=== PATIENT | male | born 1960 | race Caucasian/White ===

== ENCOUNTER 2017-11-12 13:59 | Inpatient (IN) | payer BC ==
[~2017-11-12] VITALS: Ht 190.5 cm; Wt 98.0 kg
[2017-11-12 14:39] LABS: BASOPHILS % (AUTO) 0.3 % (0-1); EOSINOPHILS # (AUTO) 0.2 X10'3 (0-0.9); EOSINOPHILS % (AUTO) 1.7 % (0-6); HEMATOCRIT 39.7 % (42.0-52.0); HEMOGLOBIN 13.8 g/dl (14.0-17.9); LYMPHOCYTES # (AUTO) 1.5 X10'3 (1.1-4.8); LYMPHOCYTES % (AUTO) 16.7 % (21-51); MEAN CORPUSCULAR HEMOGLOBIN 32.1 PG (27.0-31.0); MEAN CORPUSCULAR HGB CONC 34.8 % (33.0-36.5); MEAN CORPUSCULAR VOLUME 92.3 FL (78-98); MONOCYTES # (AUTO) 0.7 X10'3 (0-0.9); MONOCYTES % (AUTO) 8.1 % (2-12); NEUTROPHILS # (AUTO) 6.5 X10'3 (1.8-7.7); NEUTROPHILS % (AUTO) 73.2 % (42-75); PLATELET COUNT 287 X10'3 (140-440); WHITE BLOOD COUNT 8.9 X10'3 (4.5-11.0)
[2017-11-12 14:48] LABS: PARTIAL THROMBOPLASTIN TIME 25 SECONDS (22-32); PROTHROMBIN TIME 10.5 SECONDS (9.0-12.0)
[2017-11-12 14:52] LABS: ALANINE AMINOTRANSFERASE 32 U/L (12-78); ALBUMIN 3.7 G/DL (3.4-5.0); ALBUMIN/GLOBULIN RATIO 1.1 (1.1-1.5); ALKALINE PHOSPHATASE 72 IU/L (46-116); ANION GAP 11 (8-16); ASPARTATE AMINO TRANSFERASE 15 U/L (10-37); BLOOD UREA NITROGEN 19 MG/DL (7-18); BUN/CREATININE RATIO 17.6 (5.4-32.0); CALCIUM 8.6 MG/DL (8.5-10.1); CHLORIDE 103 MMOL/L (99-107); CREATININE 1.08 MG/DL (0.60-1.10); GLUCOSE 129 MG/DL (70-104); POTASSIUM 3.7 MMOL/L (3.5-5.1); SODIUM 138 MMOL/L (135-145); TOTAL CARBON DIOXIDE 24.1 MMOL/L (24-32); eGFR 71 ML/MIN
[2017-11-12] MEDS ORDERED: HYDROmorphone 1 mg/ml syringe IM ONE (15:00)
[2017-11-12 15:13] LABS: LIPASE 100 U/L (73-393)
[2017-11-12] MEDS ORDERED: magnesium 1gm/100ml D5W IVPB 50 ML IV PRN (15:55)
[2017-11-12] MEDS ORDERED: ondansetron/PF 4mg/2ml inj IV PRN (15:55)
[2017-11-12] MEDS ORDERED: magnesium hydroxide 30ml (MOM) UD suspension PO PRN (15:55)
[2017-11-12] MEDS ORDERED: potassium Cl 40MEQ/NS 500ml 500 ML IV PRN ×2 (15:55)
[2017-11-12] MEDS ORDERED: mag hydrox/Alum hydrox/simeth 30ml oral suspension PO PRN (15:55)
[2017-11-12] MEDS ORDERED: acetaminophen 325mg tablet PO PRN ×2 (15:55→19:15)
[2017-11-12] MEDS ORDERED: magnesium Cl slow-release 64mg tablet PO PRN (15:55)
[2017-11-12] MEDS ORDERED: magnesium 4gm in 100ml NS 100 ML IV PRN (15:55)
[2017-11-12] MEDS ORDERED: potassium Cl 20 mEq SR tablet PO PRN ×2 (15:55)
[2017-11-12] MEDS ORDERED: LOSA1TAB41 PO (17:13)
[2017-11-12] MEDS ORDERED: ATOR20TA PO (17:13)
[2017-11-12] MEDS ORDERED: AMLO2.5T2 PO (17:13)
[2017-11-12] MEDS ORDERED: HYDROmorphone 1 mg/ml syringe IV ONE (19:15)
[2017-11-12 20:00] VITALS: BP 140/80
[2017-11-12] MEDS ORDERED: nitroGLYCERIN 0.4mg SUBLingual tab SL PRN (20:00)
[2017-11-12] MEDS ORDERED: regadenoson 0.4mg/5ml syringe IV PRN (20:00)
[2017-11-12] MEDS ORDERED: metoprolol tartrate 1mg/ml inj IV PRN (20:00)
[2017-11-12] MEDS ORDERED: CAFFEINE CITRATE 60 MG/3 ML injection vial IV PRN (20:00)
[2017-11-12] MEDS ORDERED: Melatonin 3mg tablet PO SCH (21:00)
[2017-11-12] MEDS ORDERED: atorvastatin 10mg tablet PO SCH (21:00)
[2017-11-13] VITALS (10 sets, daily range): BP systolic 127–153; BP diastolic 78–88
[2017-11-13 04:40] LABS: BASOPHILS % (AUTO) 0.5 % (0-1); EOSINOPHILS # (AUTO) 0.3 X10'3 (0-0.9); EOSINOPHILS % (AUTO) 3.7 % (0-6); HEMATOCRIT 42.4 % (42.0-52.0); HEMOGLOBIN 14.6 g/dl (14.0-17.9); LYMPHOCYTES % (AUTO) 24.8 % (21-51); MEAN CORPUSCULAR HEMOGLOBIN 31.7 PG (27.0-31.0); MEAN CORPUSCULAR HGB CONC 34.4 % (33.0-36.5); MEAN CORPUSCULAR VOLUME 92.3 FL (78-98); MEAN PLATELET VOLUME 7.3 FL (7.4-10.4); MONOCYTES # (AUTO) 0.8 X10'3 (0-0.9); MONOCYTES % (AUTO) 10.7 % (2-12); NEUTROPHILS # (AUTO) 4.8 X10'3 (1.8-7.7); NEUTROPHILS % (AUTO) 60.3 % (42-75); PLATELET COUNT 292 X10'3 (140-440); RED BLOOD COUNT 4.59 X10'6 (4.70-6.10); RED CELL DISTRIBUTION WIDTH 13.2 % (11.5-14.5); WHITE BLOOD COUNT 7.9 X10'3 (4.5-11.0)
[2017-11-13 04:59] LABS: ALBUMIN 3.7 G/DL (3.4-5.0); ANION GAP 9 (8-16); BLOOD UREA NITROGEN 16 MG/DL (7-18); CALCIUM 8.6 MG/DL (8.5-10.1); CHLORIDE 102 MMOL/L (99-107); CREATININE 0.84 MG/DL (0.60-1.10); GLUCOSE 108 MG/DL (70-104); MAGNESIUM 2.1 MG/DL (1.5-2.4); POTASSIUM 3.7 MMOL/L (3.5-5.1); SODIUM 137 MMOL/L (135-145); TOTAL CARBON DIOXIDE 25.6 MMOL/L (24-32); eGFR > 90 ML/MIN
[2017-11-13] MEDS ORDERED: pantoprazole 40mg Tablet.DR PO SCH (07:30)
[2017-11-13] MEDS ORDERED: K and/or MAG REPLACEMENT MC SCH (08:00)
[2017-11-13] MEDS ORDERED: CAFFEINE CITRATE 60 MG/3 ML injection vial IV ONE (08:28)
[2017-11-13] MEDS ORDERED: regadenoson 0.4mg/5ml syringe IV ONE (08:28)
[2017-11-13] MEDS ORDERED: PANT40TA4 PO (09:06)
== END 2017-11-13 13:44 | disposition home or self-care (01) | DRG 392 ==
LOC: ER 13:59 → ED HOLD 15:52 → SUR 3N 19:02
PROVIDERS: ADMIT Internal Medicine; ATTEND Internal Medicine
PROC: 4A02XM4 Measurement of Cardiac Total Activity, External Approach (ICD-10-PCS; principal; 2017-11-13)
PROC: 3E073KZ Introduction of Other Diagnostic Substance into Coronary Artery, Percutaneous Approach (ICD-10-PCS; 2017-11-13)
DX: K29.20 Alcoholic gastritis without bleeding (principal); E78.00 Pure hypercholesterolemia, unspecified; E78.5 Hyperlipidemia, unspecified; F41.0 Panic disorder [episodic paroxysmal anxiety]; I10 Essential (primary) hypertension; Z79.899 Other long term (current) drug therapy; Z82.49 Family history of ischemic heart disease and other diseases of the circulatory system
CPT/HCPCS: 36415; 71045; 78452; 80048; 80053; 83690; 83735; 84484; 85025; 85610; 85730; 87070; 93005; 93017; 99285; A9500; J1170